=== PATIENT | female | born 1980 | race Caucasian/White ===

== ENCOUNTER → 2016-05-12 | Day surgery (SDC) | payer OTHER ==
[~2016-05-12] MED LIST: ACETAMINOPHEN 325 MG TAB PO PRN; DOXYCYCLINE INJ 100 MG in NS 250 ML IV ONE; HYDROCODONE/APAP 5/325 TAB PO PRN; KETOROLAC 30 MG/1 ML SDV ONE; LIDOCAINE 2% 5 ML SDV ONE; LR 1,000 ML IV ONE; LR 1,000 ML IV SCH; METHYLERGONOVINE MAL 0.2 MG/ML INJ ONE; MIDAZOLAM 2 MG/2 ML VIAL IVP ONE; ONDANSETRON 4 MG/2 ML VIAL IVP PRN; ONDANSETRON 4 MG/2 ML VIAL ONE; PROMETHAZINE HCL 25 MG/ML INJ IVP PRN; PROPOFOL/EMULSION 500 MG/50 ML BOTTLE IV ONE; fentaNYL 100 MCG/2 ML INJ ONE
[2016-05-12 06:40] LABS: % IMMATURE GRANULYOCYTES 0.3 % (0.0-1.1); ABSOLUTE IMMATURE GRANULOCYTES 0.02 10^3/uL (0.00-0.10); ADD DIFF? NO; ADD MORPH? NO; ADD SCAN? NO; ATYPICAL LYMPHOCYTE FLAG 10 (0-99); FRAGMENT RBC FLAG 0 (0-99); HEMATOCRIT 39.9 % (38.0-47.0); HEMOGLOBIN 14.3 g/dL (12.6-16.3); LEFT SHIFT FLG 0 (0-99); LIPEMIA HEMOLYSIS FLAG 90 (0-99); MEAN CELL HEMOGLOBIN 29.7 pg (27.9-34.1); MEAN CELL HEMOGLOBIN CONCENTR. 35.8 g/dL (32.4-36.7); MEAN CELL VOLUME 82.8 fL (81.5-99.8); MEAN PLATELET VOLUME 10.6 fL (8.7-11.7); PLATELET CLUMPS FLAG 0 (0-99); PLATELET COUNT 176 10^3/uL (150-400); RED BLOOD CELL COUNT 4.82 10^6/uL (4.18-5.33); RED CELL DISTRIBUTION WIDTH 12.3 % (11.5-15.2)
--- NOTE | 2016-05-12 08:26 | POSTOPPROG ---
Post Op Note Date of Operation: 05/12/16 Surgeon: [facility] [employer] Driver: none Anesthesiologist: Glen Anesthesia: GET(General Endotracheal) Pre-op Diagnosis: missed Post-op Diagnosis: missed Indication: missed Procedure: suction D&C Findings: Tissue removed c/w POC Inf/Abcess present in the surg proc area at time of surgery?: No Depth: Organ Space EBL: Minimal Complications: none Drains: Other (none) Specimen(s): Uterine tissue/POC
--- NOTE | 2016-05-12 09:14 | GOP ---
DATE OF OPERATION: 05/12/2016 SURGEON: Any [facility]ona MD WORKFLOW DEVELOPER: None. ANESTHESIA: General. ANESTHESIOLOGIST: Dusty Carroll MD. PREOPERATIVE DIAGNOSIS: Missed . POSTOPERATIVE DIAGNOSIS: Missed . PROCEDURE PERFORMED: Suction dilation and curettage. FINDINGS: Operative findings revealed tissue that was removed from the uterine cavity, that appeare d consistent with products of conception. One dose of Methergine was given intraoperatively for the increased cavity size, and risk of bleeding. There were no immediate complications. SPECIMENS: Uterine contents/products of conception. ESTIMATED BLOOD LOSS: 25 cc. INDICATIONS: Patient is a 35-year-old, 2, para 1 female, at 10 weeks gestation by last mens trual period, who was diagnosed with a missed 1 week ago, with a crown rump length of 1.1 c m, with no cardiac activity visualized. She desired confirmation with re-evaluation in 1 week . At that time her hCGs were falling, and her repeat ultrasound confirmed a missed . She d esired to proceed with surgical management. DESCRIPTION OF PROCEDURE: The patient was taken to the operating room, where general anesthesia was found to be adequate. Patient was prepared and draped in the normal sterile fashion, in dorsal lit hotomy position. A weighted speculum was placed in the patient's vagina and a Macias retractor used t o visualize the cervix clearly. A single-tooth tenaculum was placed on the anterior lip of the cerv ix, and the cervix was gently dilated up to 10 mm using Hegar dilators. A 10 mm rigid curved suctio n curette was attached to the tubing, and the suction was noted to be adequate at 55 mmHg. The suct ion curette was gently advanced into the cervix into the uterine cavity, and the suction was activat ed. The curette was rotated to clear the uterus of all tissue, blood, and clot. The curette was re moved and a sharp curettage was noted, with a gritty texture noted circumferentially. A repeat suct ion curettage was performed with no additional tissue noted. The curette was removed. There was a small trickle of blood noted and 1 dose of Methergine 0.2 mg IM was administered. The bleeding slow ed. The tenaculum was removed and hemostasis was obtained with use of silver nitrate. All instrume nts were removed from the patient's vagina. She was awakened from anesthesia without any immediate complications. All sponge and lap counts were correct x2. The patient was transferred to the PACU in stable and good condition. COMPLICATIONS: None. DRAINS: None. IV FLUIDS: 1000 cc. URINE OUTPUT: None. /[id number]/MODL
== END | disposition home or self-care (01) ==
LOC: FLD 05:53 → UNDOADMOB 05:53 → FOBOP 05:53 → EDSTATUS 10:38
PROVIDERS: ATTEND Obstetrics & Gynecology
PROC: 10D17ZZ Extraction of Products of Conception, Retained, Via Natural or Artificial Opening (ICD-10-PCS; principal; 2016-05-12)
DX: O02.1 Missed abortion (principal); Z3A.10 10 weeks gestation of pregnancy
CPT/HCPCS: J1885; J2210; J2250; J2405; J2704; J3010

== ENCOUNTER → 2016-09-23 | Outpatient (CLI) | payer OTHER | LOC: FIMAGING 13:39 | PROVIDERS: ATTEND Obstetrics & Gynecology | DX: Z34.81 Encounter for supervision of other normal pregnancy, first trimester (principal); Z3A.12 12 weeks gestation of pregnancy ==

== ENCOUNTER → 2016-11-15 | Outpatient (CLI) | payer OTHER | LOC: FIMAGING 09:39 | PROVIDERS: ATTEND Obstetrics & Gynecology | DX: Z36 Encounter for antenatal screening of mother (principal); O34.219 Maternal care for unspecified type scar from previous cesarean delivery; Z14.1 Cystic fibrosis carrier; Z3A.20 20 weeks gestation of pregnancy ==

== ENCOUNTER → 2017-04-01 | Outpatient (CLI) | payer OTHER ==
[~2017-04-01] MED LIST changes: -ACETAMINOPHEN 325 MG TAB PO PRN; -DOXYCYCLINE INJ 100 MG in NS 250 ML IV ONE; -HYDROCODONE/APAP 5/325 TAB PO PRN; +IOPAMIDOL (ISOVUE-300) 100 ML BTL ONE; -KETOROLAC 30 MG/1 ML SDV ONE; -LIDOCAINE 2% 5 ML SDV ONE; -LR 1,000 ML IV ONE; -LR 1,000 ML IV SCH; -METHYLERGONOVINE MAL 0.2 MG/ML INJ ONE; -MIDAZOLAM 2 MG/2 ML VIAL IVP ONE; -ONDANSETRON 4 MG/2 ML VIAL IVP PRN; -ONDANSETRON 4 MG/2 ML VIAL ONE; -PROMETHAZINE HCL 25 MG/ML INJ IVP PRN; -PROPOFOL/EMULSION 500 MG/50 ML BOTTLE IV ONE; -fentaNYL 100 MCG/2 ML INJ ONE
== END ==
LOC: FIMAGING 14:51
PROVIDERS: ATTEND Obstetrics & Gynecology
DX: L76.32 Postprocedural hematoma of skin and subcutaneous tissue following other procedure (principal)
CPT/HCPCS: Q9967

== ENCOUNTER → 2017-05-25 | Outpatient (CLI) | payer OTHER | LOC: FIMAGING 14:34 | PROVIDERS: ATTEND Obstetrics & Gynecology | DX: Z09 Encounter for follow-up examination after completed treatment for conditions other than malignant neoplasm (principal); R93.8 Abnormal findings on diagnostic imaging of other specified body structures; Z98.890 Other specified postprocedural states | CPT/HCPCS: Q9967 ==